=== PATIENT | female | born 1970 | race Native Hawaiian/Other Pacific Islander ===

== ENCOUNTER 2019-07-01 04:20 | Inpatient (IN) ==
[2019-07-01] MEDS ORDERED: ASPIRIN PO ONE (04:50)
--- NOTE | 2019-07-01 04:51 | PROVIDER DOCUMENTATION ---
HPI-Chest Pain - General Chief Complaint: Chest Pain Stated Complaint: CHEST PAINS Time Seen by Provider: 07/01/19 04:25 Source: patient, family Allergies/Adverse Reactions: Patient Allergies Allergy/AdvReac Type Severity Reaction Status Date / Time No Known Allergies Allergy Verified 07/01/19 04:41 Home Medications: Home Medication List Medication Instructions Recorded Confirmed Last Taken Type NK [No Home Medications] 07/01/19 07/01/19 Unknown History - History of Present Illness-CP Nature of Presenting Problem: 48 y/o female c/o chest pain that started yesterday and radiates to her lt arm. Pt was seen here for cough one week ago and was diagnosed with GERD but hasnt had meds filled yet. Location: reports: other (Lt chest) Chest Pain Radiation: reports: arms (lt arm) Quality of Pain: reports: aching Severity in ED: mild Onset/Duration: 24 hours ago Timing: still present Context/Activities at Onset: reports: light activity Modifying Factors: improves with: nothing, coughing Nitro Today/Relief: no nitro taken today Aspirin Treatment Today: 325 mg x 1, provided by ED Prior Chest Pain/Cardiac Workup: reports: no prior chest pain Similar Symptoms Previously?: No Recently Seen Here or By Another Healthcare Provider: No Review of Systems - Adult - REVIEW OF SYSTEMS - ADULT Constitutional: reports: no symptoms reported, see HPI Eyes: reports: no symptoms reported, see HPI Ears, Nose, Mouth & Throat: reports: no symptoms reported, see HPI Cardiovascular: reports: see HPI, chest pain Respiratory: reports: no symptoms reported, see HPI Gastrointestinal: reports: no symptoms reported, see HPI Genitourinary: reports: no symptoms reported, see HPI Musculoskeletal: reports: no symptoms reported, see HPI Integumentary: reports: no symptoms reported, see HPI Neurological: reports: no symptoms reported, see HPI Psychiatric: reports: no symptoms reported, see HPI Endocrine: reports: no symptoms reported, see HPI Hematologic/Lymphatic: reports: no symptoms reported, see HPI Allergic/Immunologic: reports: no symptoms reported, see HPI All Other Systems: Reviewed and Negative Past History - Adult - PAST MEDICAL HISTORY-ADULT Review of Records: reports: Nursing Assessment Review, Medications Reviewed, Social history reviewed & non-contributory. Physical Exam-General - PHYSICAL EXAM-ADULT Initial Vital Signs Reviewed: Yes - CONSTITUTIONAL General Appearance: appears well, alert, no apparent distress - EYES Eyes: PERRL/EOMI - HEAD, EARS, NOSE, MOUTH & THROAT HENMT: normocephalic/atraumatic, moist mucous membranes - NECK Neck: non-tender, full range of motion, supple, normal inspection - RESPIRATORY Respiratory: chest non-tender, lungs clear, normal breath sounds, no pleuratic chest pain, no respiratory distress, no accessory muscle use - CARDIOVASCULAR Cardiovascular: normal peripheral pulses, regular rate, rhythm, no edema, no gallop, no JVD, no murmur - GASTROINTESTINAL (ABDOMEN) Abdominal Exam: normal bowel sounds, non tender, soft, no organomegaly, no pulsatile mass - LYMPHATIC Lymphatic: no adenopathy - MUSCULOSKELETAL Back Exam: normal inspection, no CVA tenderness, no vertebral tenderness Extremity: normal range of motion, non-tender, normal gait, normal inspection, no pedal edema, no calf tenderness, normal capillary refill - SKIN Integumentary: normal color, normal turgor - NEUROLOGIC Neurologic: dermatology nurse practitioner II-XII nml as tested, grossly normal, no motor/sensory deficits - PSYCHIATRIC Psych/Mental Status: normal mood/affect, normal thought content, normal thought process, oriented x 3 - HEART Score HEART Score: History: Slightly Suspicious HEART Score: ECG: Non-Specific Repolarization Disturbance/LBBB/PM HEART Score: Age: 45-65 Years HEART Score: Risk Factors for Atherosclerotic Disease: 1 or 2 Risk Factors HEART Score: Troponin: < or = Normal Limit Total HEART Score:: 3 Progress - PLAN OF CARE/RESULTS Progress/Plan/Lab Results: Vital Signs - 8 hr 07/01/19 04:28 07/01/19 06:15 Temperature 98.2 F Pulse Rate 81 76 Respiratory Rate 19 13 Blood Pressure 171/107 143/91 O2 Sat by Pulse Oximetry 99 99 Laboratory Results - last 24 hr 07/01/19 07/01/19 07/01/19 05:19 05:19 05:19 WBC 11.00 H RBC 4.72 Hgb 13.7 Hct 42.3 MCV 89.6 MCH 29.0 MCHC 32.4 L RDW Std Deviation 12.5 Plt Count 274 MPV 9.6 Immature Gran % (Auto) 0.3 Neut % (Auto) 61.4 Lymph % (Auto) 19.7 L [place] % (Auto) 6.9 Eos % (Auto) 11.5 H Baso % (Auto) 0.2 Immature Gran # (Auto) 0.03 Neut # (Auto) 6.75 H Lymph # (Auto) 2.17 [place] # (Auto) 0.76 H Eos # (Auto) 1.27 H Baso # (Auto) 0.02 PT INR PTT (Actin FS) Sodium 132 L Potassium 4.4 Chloride 95 L Carbon Dioxide 25 Anion Gap 13 BUN 13 Creatinine 0.6 Estimated GFR/1.73 m2 > 60 BUN/Creatinine Ratio 22 Glucose 264 H Calculated Osmolality 274 Calcium 9.0 Total Bilirubin 0.30 AST 12 ALT 10 Alkaline Phosphatase 109 H Troponin T < 0.010 Uba-R-Fsdslmcjixh Pept Total Protein 7.9 Albumin 4.5 Globulin 3.0 Albumin/Globulin Ratio 1.0 07/01/19 07/01/19 05:19 05:19 WBC RBC Hgb Hct MCV MCH MCHC RDW Std Deviation Plt Count MPV Immature Gran % (Auto) Neut % (Auto) Lymph % (Auto) [place] % (Auto) Eos % (Auto) Baso % (Auto) Immature Gran # (Auto) Neut # (Auto) Lymph # (Auto) [place] # (Auto) Eos # (Auto) Baso # (Auto) PT 12.7 INR 0.91 PTT (Actin FS) 29.4 Sodium Potassium Chloride Carbon Dioxide Anion Gap BUN Creatinine Estimated GFR/1.73 m2 BUN/Creatinine Ratio Glucose Calculated Osmolality Calcium Total Bilirubin AST ALT Alkaline Phosphatase Troponin T Dup-Q-Lnbgrcezryo Pept 10 Total Protein Albumin Globulin Albumin/Globulin Ratio Orders Category Date Time Status CHEST-1 VIEW [RAD] Stat Exams 07/01/19 04:26 Completed CBC WITH DIFF [HEME] Stat Lab 07/01/19 05:19 Completed COMPREHENSIVE METABOLIC PANEL [CHEM] Stat Lab 07/01/19 05:19 Completed D-DIMER [COAG] Stat Lab 07/01/19 06:22 Ordered PRO B-NATRIURETIC PEPTIDE Stat Lab 07/01/19 05:19 Completed PT [PROTIME WITH INR] [COAG] Stat Lab 07/01/19 05:19 Completed PTT [COAG] Stat Lab 07/01/19 05:19 Completed TROPONIN T Stat Lab 07/01/19 05:19 Completed Aspirin Med 07/01/19 04:50 Discontinued 325 mg PO NOW ONE Rocephin 1 gm/Ns IV Now Med 07/01/19 06:24 Ordered CefTRIAXONE [Rocephin] 1 gm 0.9% Sodium Chloride Inj [Ns] 50 ml IV NOW EKG [EKG] Stat Ther 07/01/19 04:24 Draft Result Diagrams: 07/01/19 05:19 07/01/19 05:19 - CONSULTS/PCP/HOSPITALIST Notification #1 *Consult/PCP/Hospitalist*: Dr Mack Time Discussed: 06:26 Reason/Comments: asked for luisa scan and echocardiogram Consult Disposition: Admit Departure - Departure Date of Disposition Decision: 07/01/19 Time of Disposition Decision: 06:26 DIAGNOSIS: Chest pain, Pneumonia, HTN (hypertension) Disposition: ADMITTED INPATIENT 09 Certified Medical Emergency: Emergent Condition: Fair Referrals and Follow-Ups: None,PCP [Primary Care Provider] - Discharge Education: Steps to Quit Smoking, [id number], Health Risks of Smoking - Critical Care Note This patient required my direct & personal management of CC.: No Attestation - Physician/ CLIFF Attestation Patient care was provided by Advanced Practice Provider:: No The physician spent face to face time with patient:: Yes Advanced Practice Provider documentation review:: Supervising physician onsite and consulted in the evaluation and care of this patient. The physician did have a face to face encounter with the patient.
--- NOTE | 2019-07-01 05:03 | EKG Report ---
Test Performed on : 07/01/2019 04:33:05 AM Test Reason : chest pain Blood Pressure : / mmHG Vent. Rate : 082 BPM Atrial Rate : 082 BPM P-R Int : 164 ms QRS Dur : 080 ms QT Int : 380 ms P-R-T Axes : 059 031 029 degrees QTc Int : 443 ms Normal sinus rhythm. Possible Left atrial enlargement Borderline ECG No previous ECGs available Unconfirmed Result
--- NOTE | 2019-07-01 05:34 | Diag Imaging Result Doc PS360 ---
EXAM: CHEST-1 VIEW HISTORY: cp TECHNIQUE: Single view COMPARISON: 06/19/2019 FINDINGS: Poor inspiratory effort. The heart is not enlarged. The vessels are not distended. Mild increased interstitial markings in the left base. No consolidation. No effusion identified. IMPRESSION: Atelectasis versus a tiny infiltrate left Electronically signed by Jose Juan Solorio 07/01/2019 5:32 AM
[2019-07-01 05:50] LABS: BASO# 0.02 X1000 (0.0-0.2); BASO% 0.2 % (0.0-0.8); EOS# 1.27 X1000 (0.0-0.7); EOS% 11.5 % (0.0-10.0); HEMATOCRIT 42.3 % (37.0-47.0); HEMOGLOBIN 13.7 g/dL (12.0-16.0); IMM GRAN# 0.03 X1000 (0.0-0.04); IMM GRAN% 0.3 % (0.0-0.5); LYMPH# 2.17 X1000 (1.2-3.4); LYMPH% 19.7 % (20.5-51.1); MCHC 32.4 g/dL (33-37); MCV 89.6 FL (81-99); MONO# 0.76 X1000 (0.11-0.59); MONO% 6.9 % (1.7-9.3); MPV 9.6 FL (7.4-10.4); NEUT# 6.75 X1000 (1.4-6.5); NEUT% 61.4 % (42.2-75.2); PLT 274 X1000 (130-400); RBC 4.72 XMIL (4.2-5.4); RDW 12.5 % (11.5-14.5)
[2019-07-01 06:04] LABS: INR 0.91; PROTIME 12.7 Seconds (11.0-16.0)
[2019-07-01 06:05] LABS: PTT 29.4 Seconds (22.3-41.8)
[2019-07-01 06:09] LABS: AGAP 13; ALBUMIN 4.5 g/dL (3.5-5.0); ALKALINE PHOSPHATASE 109 U/L (32-104); BUN 13 mg/dL (8-22); CHLORIDE 95 mmol/L (98-107); COSMO 274; CREATININE 0.6 mg/dL (0.5-0.9); ESTIMATED GFR > 60; GLUCOSE 264 mg/dL (70-104); GOT 12 U/L (10-30); GPT 10 U/L (10-36); POTASSIUM 4.4 mmol/L (3.5-5.1); SODIUM 132 mmol/L (136-145); TCO2 25 mmol/L (25-35); TOTAL PROTEIN 7.9 g/dL (6.3-8.3)
[2019-07-01] MEDS ORDERED: ROCEPHIN 1 GM in NS 50 ML IV ONE (06:24)
[2019-07-01] MEDS ORDERED: ZOFRAN IV PRN (06:29)
[2019-07-01] MEDS ORDERED: MORPHINE IV PRN (06:29)
[2019-07-01] MEDS ORDERED: NS 1,000 ML IV PRN (08:21)
[2019-07-01] MEDS ORDERED: TYLENOL PO PRN (08:21)
[2019-07-01] MEDS ORDERED: NITROGLYCERIN SL PRN (09:06)
[2019-07-01] MEDS ORDERED: LR 1,000 ML IV SCH (11:00)
[2019-07-01] MEDS ORDERED: ROBAXIN PO ONE (13:29)
--- NOTE | 2019-07-01 13:38 | Diag Imaging Result Document ---
PROCEDURE NAME: MYOCARDIAL PERF SCAN, STR/REST - 07/01/2019 PROCEDURE: Lexiscan Cardiolite stress test. DESCRIPTION OF PROCEDURE IN DETAIL: Lexiscan was infused per standard protocol. During Lexiscan infusion, patient had hypotension; blood pressure did drop from 140 to 66. The patient was given IV fluids at 75 mL an hour and also was given aminophylline 125 mg. Blood pressure stabilized and was stable. There was no chest pain. Stress electrocardiogram was negative for ischemia. Cardiolite was injected. Gated SPECT images were obtained in standard views. Total of 11.2 mCi of Cardiolite was injected for the rest phase; 33.5 mCi of Cardiolite was injected for the stress phase. Images revealed normal left ventricular cavity size, normal myocardial perfusion. There is chest wall attenuation. Left ventricular ejection fraction by gated SPECT was 82%. CONCLUSIONS: 1. No chest pain. 2. Negative Lexiscan stress electrocardiogram. 3. Normal myocardial perfusion. 4. Left ventricular ejection fraction 82%. cc: Waldemar Arias MD
[2019-07-01 13:54] LABS: HEMOGLOBIN A1C 10.8 % (4.8-6.0)
[2019-07-01] MEDS ORDERED: LEXISCAN ONE (15:11)
[2019-07-01] MEDS ORDERED: AMINOPHYLLINE ONE (15:11)
[2019-07-01] MEDS ORDERED: FLU VACCINE IM ONE (15:40)
[2019-07-01] MEDS ORDERED: PNEUMOVAX 23 IM ONE (15:41)
[2019-07-01] MEDS: ROBAXIN PO SCH ×2 (16:33→22:45)
--- NOTE | 2019-07-01 17:09 | Diag Imaging Result Doc PS360 ---
EXAM: CT THORAX W/O CONTRAST INDICATION: PNA TECHNIQUE: This exam was performed using automated exposure control, adjustment of mA or kV according to patient size, and/or use of iterative reconstruction technique. COMPARISON: None. FINDINGS: There is excessive motion artifact at the lower lung zones, which may decrease sensitivity. There is subsegmental atelectasis at both lung bases. At the anterior costophrenic angle on the left there is more dense focal atelectasis versus a very small infiltrate. The lungs are grossly clear, otherwise. There is no pleural fluid collection and no pneumothorax. There is no cardiomegaly. There is no evidence of significant mediastinal or hilar lymphadenopathy. Limited views of the upper abdomen are essentially unremarkable. There is no evidence of acute osseous abnormality. IMPRESSION: Minimal bibasilar subsegmental atelectasis and a questionable tiny infiltrate at the anterior left lung base. Electronically signed by Trevor Reese 07/01/2019 5:07 PM
--- NOTE | 2019-07-01 18:11 | ECHO REPORT ---
ORDER DATE: 07/01/2019 ECHOCARDIOGRAPHIC MEASUREMENTS: 1. Interventricular septum 1.0. 2. Left ventricular posterior wall 0.9. 3. Diastolic diameter 4.5. 4. Left atrium 2.8. 5. Aorta 3.2 cm. ANATOMIC FINDINGS: 1. Aortic valve leaflets are trileaflet. 2. Pulmonic valve was normal. There is trace pulmonary regurgitation. 3. Normal left ventricular cavity size. Estimated ejection fraction of 65%. 4. There is mild left atrial enlargement. 5. There is mild mitral regurgitation. 6. Peak velocity across the aortic valve less than 2 m/sec by Doppler studies. There is no aortic stenosis or regurgitation. There is mild tricuspid regurgitation. 7. There is no pericardial effusion or obvious intracardiac mass or thrombus seen. 8. Anterior echo-free space suggestive of pericardial fat pad noted. cc: Waldemar Arias MD
--- NOTE | 2019-07-01 22:03 | HISTORY AND PHYSICAL ---
PRIMARY CARE PROVIDER: No one. CHIEF COMPLAINT: Left chest pain. HISTORY OF PRESENT ILLNESS: Ms. Lenny Barros is a 48-year-old female who presented to the emergency department at [facility] with 3-day complaint of chest pain. She does not speak [place], and we are in the process of getting her translative services, currently relying on her akgnlyxy-zs-gmt, Madonna Palumbo, to help with interpretation, and also Dr. Mack is at the bedside. She is for [facility] and she speaks [place]. Apparently, the chest pain was not a sudden onset, but she has been doing a lot of laundry and picking up heavy baskets of laundry, and has now developed a left-sided chest pain. There is no nausea, vomiting, or lightheadedness. No shortness of breath. The pain is reproducible with moving the left arm and palpating left chest wall. She denies fever or coughing up any colors, but there might be a very minute, small area of possible pneumonia developing in the left lower lobe. She does have a white count of 11,000, so will get antibiotics started for that. To be on the safe side, we will go ahead and rule out for coronary disease as there is a bit of a language barrier. It is noted that the patient had come in about a week ago, was diagnosed with gastric reflux, but did not have medications filled for that. She had come in with a complaint of cough. Otherwise, there is no other complaint. PAST MEDICAL HISTORY: GERD. PAST SURGICAL HISTORY: None. SOCIAL HISTORY: Lives with wxdkjckc-kx-zyy and son. Smokes less than a half pack per day since the age of 14. Rarely, but occasionally, will drink 1 beer. Denies any illicit drug use. She does not work. FAMILY HISTORY: Mother's side of the family had diabetes. Father's side of the family, no medical conditions. ALLERGIES: No known drug allergies. HOME MEDICATIONS: None. REVIEW OF SYSTEMS: A 14-point review of systems is complete and all were negative, except for those mentioned above in HPI. PHYSICAL EXAMINATION: VITAL SIGNS: Temperature 97.8 degrees, heart rate 68, respiratory rate 18, blood pressure 130/74, O2 saturation 100% on room air. GENERAL: Ms. Barros is a 48-year-old female. She is in no acute distress. She is able answer questions via her daughter in-law who is helping with interpretation and they seem to be appropriate. HEENT: Atraumatic, normocephalic. Pupils equal, round, reactive to light. Extraocular movements intact. Mucous membranes are moist. NECK: Trachea midline. CARDIOVASCULAR: S1, S2. Regular rate and rhythm. No rubs, gallops, murmurs. No lower extremity edema. Dorsalis and radial pulses 2+. Negative JVD or carotid bruits. PULMONARY: Clear to auscultate bilateral breath sounds. No accessory muscle use or work of breathing noted. GASTROINTESTINAL: Soft, nontender, nondistended. Positive bowel sounds x4. EXTREMITIES: Moves all extremities equally with full range of motion. NEUROLOGIC: Alert and oriented x3. Follows commands. Sensory is intact. SKIN: Warm, dry, intact. LABORATORY DATA: White blood cells 11,000, hemoglobin 13, hematocrit 42, platelet count 274,000. INR 0.91, PTT is 29.4. D-dimer is 0.29. Sodium 132, potassium 4.4, BUN 13, creatinine 0.6, glucose 264. Bilirubin 0.30, AST 12, ALT 10. CK 76, troponin less than 0.01 x 2. ProBNP 10. Albumin is 4.5, lactate 2.0. IMAGING: Chest x-ray: Atelectasis versus a tiny infiltrate in the left. EKG: Normal sinus rhythm, rate 82, QTc is 443. There are no ST changes. ASSESSMENT AND PLAN: 1. Atypical chest pain. I believe this is musculoskeletal. Worsens with palpation to the chest wall or movement of the left arm. We will add some Robaxin to her medication regimen and will follow up on her stress test. 2. Gastroesophageal reflux disease. We will add Prilosec. Apparently, she did not have any of her medications filled about a week ago when she presented with reflux symptoms. She can have p.r.n. Zofran. 3. Hyperglycemia without diagnosis of diabetes. She will have a hemoglobin A1c and we will follow up on that. 4. Possible left lower lobe, very small pneumonia. She had a cough and some reflux that she presented with last week, so she has been started on Rocephin. 5. Deep venous thrombosis prophylaxis. Lovenox. 6. Tobacco abuse. Cessation discussed. Dictated by NELSON Piedra for Lukas Vázquez MD Addendum: Patient seen and examined by myself. Agree with NELSON note. It reflects my assessment and plan. Patient is being admitted to hospital for chest pain. Because of language barrier we are going to order an extensive work up and follow those results. Will monitor patient closely. cc: NELSON Piedra MD [facility]
[2019-07-01] MEDS: HUMULIN R SUBQ SCH (22:45)
[2019-07-02] MEDS: PRILOSEC PO SCH ×2 (05:47→06:40)
[2019-07-02 05:49] VITALS: BP 140/76
[2019-07-02] MEDS ORDERED: ROCEPHIN 1 GM in NS 50 ML IV SCH (06:00)
[2019-07-02] MEDS: HUMULIN R SUBQ SCH (06:06)
[2019-07-02 06:56] LABS: BASO# 0.05 X1000 (0.0-0.2); BASO% 0.7 % (0.0-0.8); EOS# 1.08 X1000 (0.0-0.7); EOS% 15.5 % (0.0-10.0); HEMATOCRIT 37.8 % (37.0-47.0); HEMOGLOBIN 12.5 g/dL (12.0-16.0); IMM GRAN# 0.01 X1000 (0.0-0.04); IMM GRAN% 0.1 % (0.0-0.5); LYMPH# 2.02 X1000 (1.2-3.4); MCH 30.1 PG (27-31); MCHC 33.1 g/dL (33-37); MCV 91.1 FL (81-99); MONO# 0.52 X1000 (0.11-0.59); MONO% 7.5 % (1.7-9.3); MPV 9.7 FL (7.4-10.4); NEUT# 3.29 X1000 (1.4-6.5); NEUT% 47.2 % (42.2-75.2); PLT 260 X1000 (130-400); RBC 4.15 XMIL (4.2-5.4); RDW 12.4 % (11.5-14.5); WBC 6.97 X1000 (4.8-10.8)
[2019-07-02 07:10] LABS: AGAP 11; ALBUMIN 3.6 g/dL (3.5-5.0); ALKALINE PHOSPHATASE 100 U/L (32-104); BUN 8 mg/dL (8-22); CALCIUM 8.5 mg/dL (8.8-10.2); CHLORIDE 105 mmol/L (98-107); COSMO 279; CREATININE 0.6 mg/dL (0.5-0.9); ESTIMATED GFR > 60; GLUCOSE 262 mg/dL (70-104); GOT 12 U/L (10-30); GPT 9 U/L (10-36); MAGNESIUM 1.6 mg/dL (1.5-2.7); POTASSIUM 4.1 mmol/L (3.5-5.1); SODIUM 136 mmol/L (136-145); TCO2 21 mmol/L (25-35); TOTAL PROTEIN 6.7 g/dL (6.3-8.3)
[2019-07-02] MEDS ORDERED: LOVENOX SUBQ SCH (09:00)
[2019-07-02] MEDS: ROBAXIN PO SCH (10:17)
--- NOTE | 2019-07-03 03:22 | DISCHARGE SUMMARY ---
ADMISSION DATE: 07/01/2019 DISCHARGE DATE: 07/02/2019 DISCHARGE DIAGNOSES: 1. Atypical chest pain, resolved. 2. Left lower lobe pneumonia. 3. Gastroesophageal reflux disease. 4. Diabetes mellitus type 2. PROCEDURES: 1. Chest x-ray done on admission showed atelectasis versus a tiny infiltrate in the left base. 2. Echocardiogram Doppler show an ejection fraction of 65%. No aortic stenosis or regurgitation. No pericardial effusion. 3. Myocardial perfusion scan nuclear medicine showed no chest pain. Negative with Lexiscan stress electrocardiographic with normal myocardial perfusion. Left ventricular ejection fraction 82%. 4. Chest CT showed minimal bibasilar subsegmental atelectasis and questionable tiny infiltrates on the anterior left lung base. ASSESSMENT AND PLAN: This is a 48-year-old female who presented to the emergency department complaining of chest pain. The patient does not speak French. Her mjzrjnhu-qb-awn helped us to translate and, apparently, she has this pain for few days. Because we were not completely sure of her symptoms because of the language barrier, we decided to proceed with chest pain workup, including a Lexiscan and echocardiogram with results as above. Chest x-ray did confirmed a small left lower lobe pneumonia and labs confirmed diabetes with hemoglobin A1c of 10.6. In that regard, we started patient on antibiotics. She is feeling fine, chest pain is gone at time of my dictation, so we are going to discharge her with antibiotics and also metformin for this newly diagnosed diabetes. DISCHARGE PHYSICAL EXAMINATION: Vital signs: Temperature 98.3 degrees, heart rate 70, respiratory rate 18, blood pressure 140/76, O2 saturation 100% on room air. General: This is a 48-year-old, female lying in bed, in no acute distress. Cardiovascular: S1, S2 heard. No murmurs, gallops, or rubs. Regular rate and rhythm. Respiratory: Clear to auscultation bilaterally. No work of breathing or using accessory muscles. Abdomen: Soft, nontender to palpation. Bowel sounds present. No organomegaly. Extremities: No clubbing, cyanosis, or edema. Peripheral pulses present in both legs. Neurological: The patient is alert and oriented x3. Moves 4 extremities. DISCHARGE DISPOSITION: Home to self-care. DISCHARGE MEDICATIONS: 1. Levofloxacin 750 mg, 1 tablet p.o. daily for 10 days. 2. Metformin as directed. FOLLOW UP: The patient needs to find a primary care doctor, but if symptoms worsen, she has been advised to come back to the emergency department. cc: Lukas Vázquez MD
== END 2019-07-02 11:46 | disposition home or self-care (01) | DRG 313 ==
LOC: P.ED 04:20 → P.MEDSURG 07:55
PROVIDERS: ATTEND Internal Medicine